=== PATIENT | female | born 1985 | race Caucasian/White ===

== ENCOUNTER 2017-05-09 21:06 | Emergency (ER) | payer OTHER ==
[2017-05-09 21:12] VITALS: BP 114/47; PULSE 109; TEMP 97.9; BMI 20.5
--- NOTE | 2017-05-09 22:03 | PDOC ---
History of Present Illness - General History Source: Patient, Family Exam Limitations: No Limitations - History of Present Illness Initial Comments: 05/09/17 22:31 The patient is a 32 year old female, with no significant past medical history, who presents to the emergency department complaining of right arm and shoulder pain for approximately 3 days. The patient reports her pain radiates down her right arm, but denies any numbness or paresthesias. She reports taking two 500 mg aspirin every 4 hours, with minimal relief. The patient reports she thinks it might be muscular. She reports her pain is exacerbated when she stretches her right arm over her head. She denies any neck or back pain. The patient denies any chest pain, shortness of breath, diaphoresis, or palpitations. She denies any fever, chills, or dizziness. The patient reports her last menstrual period was 10 months ago. She reports she is on norplant. Allergies: NKDA, [Shrimp] Past Surgical History: None reported Social History. Non smoker. No ETOH or drug use. <Hector Burgess - Last Filed: 05/09/17 22:30> <Ann Tyler - Last Filed: 05/09/17 23:53> - General Chief Complaint: Pain, Acute Stated Complaint: SHOULDER PAIN FOR 3 DAYS Time Seen by Provider: 05/09/17 21:51 Past History <Hector Burgess - Last Filed: 05/09/17 22:30> - Past Medical History Asthma: No Cancer: No Cardiac Disorders: No Diabetes: No HTN: No Seizures: No Thyroid Disease: No - Psycho/Social/Smoking Cessation Hx Anxiety: No Suicidal Ideation: No Smoking History: Never smoked Have you smoked in the past 12 months: No Number of Cigarettes Smoked Daily: 0 Information on smoking cessation initiated: No Hx Alcohol Use: No Drug/Substance Use Hx: No Hx Substance Use Treatment: No <Ann Tyler - Last Filed: 05/09/17 23:53> - Past Medical History Allergies/Adverse Reactions: Allergies Allergy/AdvReac Type Severity Reaction Status Date / Time No Known Drug Allergies Allergy Verified 05/09/17 21:09 SHRIMP Allergy Uncoded 05/09/17 21:09 Home Medications: Ambulatory Orders Acetaminophen [Tylenol .Regular Strength -] 650 mg PO Q4H PRN #20 tablet Ferrous Sulfate [Feosol] 325 mg PO DAILY 06/20/14 Ibuprofen [Motrin -] 600 mg PO Q4H PRN #20 tablet 06/20/14 Vitamins (Sjr) - 1 mg PO DAILY 06/20/14 Methocarbamol [Robaxin -] 500 mg PO TID #30 tablet 05/09/17 Review of Systems - Review of Systems Able to Perform ROS?: Yes Comments:: 05/09/17 22:31 GENERAL/CONSTITUTIONAL: No fever or chills. No weakness. HEAD, EYES, EARS, NOSE AND THROAT: No change in vision. No ear pain or discharge. No sore throat. CARDIOVASCULAR: No chest pain or shortness of breath. RESPIRATORY: No cough, wheezing, or hemoptysis. GASTROINTESTINAL: No nausea, vomiting, diarrhea or constipation. GENITOURINARY: No dysuria, frequency, or change in urination. MUSCULOSKELETAL: Yes: +Right arm/shoulder pain. No joint or muscle swelling . No neck or back pain. SKIN: No rash NEUROLOGIC: No headache, vertigo, loss of consciousness, or change in strength/ sensation. ENDOCRINE: No increased thirst. No abnormal weight change. HEMATOLOGIC/LYMPHATIC: No anemia, easy bleeding, or history of blood clots. ALLERGIC/IMMUNOLOGIC: No hives or skin allergy. <Hector Burgess - Last Filed: 05/09/17 22:30> *Physical Exam - Vital Signs Last Vital Signs Temp Pulse Resp BP Pulse Ox 97.9 F 109 H 18 114/47 98 05/09/17 21:09 05/09/17 21:09 05/09/17 21:09 05/09/17 21:09 05/09/17 21:09 - Physical Exam Comments: 05/09/17 22:31 GENERAL: Awake, alert, and fully oriented, in no acute distress HEAD: No signs of trauma EYES: PERRLA, EOMI, sclera anicteric, conjunctiva clear ENT: Auricles normal inspection, hearing grossly normal, nares patent, oropharynx clear without exudates. Moist mucosa NECK: Normal ROM, supple, no lymphadenopathy, JVD, or masses LUNGS: Breath sounds equal, clear to auscultation bilaterally. No wheezes, and no crackles HEART: Regular rate and rhythm, normal S1 and S2, no murmurs, rubs or gallops ABDOMEN: Soft, nontender, normoactive bowel sounds. No guarding, no rebound. No masses EXTREMITIES: Normal range of motion, no edema. No clubbing or cyanosis. No cords , erythema, or tenderness NEUROLOGICAL: Cranial nerves II through XII grossly intact. Normal speech, normal gait SKIN: Warm, Dry, normal turgor, no rashes or lesions noted. <Hector Burgess - Last Filed: 05/09/17 22:30> - Vital Signs Last Vital Signs Temp Pulse Resp BP Pulse Ox 97.9 F 109 H 18 114/47 98 05/09/17 21:09 05/09/17 21:09 05/09/17 21:09 05/09/17 21:09 05/09/17 21:09 <Ann Tyler - Last Filed: 05/09/17 23:53> Medical Decision Making - Medical Decision Making 05/09/17 23:51 Pt comes with R shoulder pain and trapezius pain. Pain runs down the right arm. Likely pinched nerve/paresthesia. She has no pain with movement of the arm and no major muscle spasm noted on exam. Exam normal, no PMHx and XR scapula and shoulder normal. Follow with neurology. <Ann Tyler - Last Filed: 05/09/17 23:53> *DC/Admit/Observation/Transfer - Attestations Scribe Attestion: 05/09/17 22:31 Documentation prepared by Hector Burgess, acting as medical dermatologist for Ann Tyler MD. <Hector Burgess - Last Filed: 05/09/17 22:30> - Discharge Dispostion Admit: No <Ann Tyler - Last Filed: 05/09/17 23:53> Diagnosis at time of Disposition: Nerve pain - Discharge Dispostion Disposition: HOME Condition at time of disposition: Stable - Prescriptions Prescriptions: Methocarbamol [Robaxin -] 500 mg PO TID #30 tablet - Referrals Referrals: Violet Burt MD [Primary Care Provider] - Savage Riley MD [Staff Physician] - - Patient Instructions Printed Discharge Instructions: Neuropathic Pain
[2017-05-09] MEDS ORDERED: METHOCARBAMOL 500 MG TABLET PO ONE (22:15)
[2017-05-09] MEDS ORDERED: METHOCARBAMOL 500 MG TABLET ONE (22:27)
== END 2017-05-09 23:28 | disposition home or self-care (01) ==
LOC: JERFT 21:06 → JER 21:06
DX: M79.2 Neuralgia and neuritis, unspecified (principal)
CPT/HCPCS: 73010-TC; 73030-TC-RT; 99281-25; 99282-25

== ENCOUNTER 2017-06-22 16:40 | Emergency (ER) | payer OTHER ==
[2017-06-22 16:56] VITALS: BP 115/42; PULSE 85; BMI 20.9
[2017-06-22] MEDS ORDERED: diazePAM 2 MG TABLET PO ONE (17:14)
[2017-06-22] MEDS ORDERED: KETOROLAC TROMETHAMINE 30 MG/1 ML VIAL IM ONE (17:14)
[2017-06-22] MEDS ORDERED: diazePAM 2 MG TABLET ONE (17:18)
[2017-06-22] MEDS ORDERED: KETOROLAC TROMETHAMINE 60 MG/2 ML VIAL ONE (17:18)
--- NOTE | 2017-06-22 17:21 | PDOC ---
History of Present Illness - General Chief Complaint: Head/Neck problem Stated Complaint: LEFT SIDE NECK PAIN Time Seen by Provider: 06/22/17 17:00 - History of Present Illness Initial Comments: 06/22/17 17:17 CHIEF COMPLAINT: neck pain HISTORY OF PRESENT ILLNESS: 32 yo F with no PMH presents to [facility] with pain to L neck. Patient states she was lying down this morning and when she got up she could not move her neck. She denies any recent trauma or injury. PAST MEDICAL HISTORY: Denies past medical history FAMILY HISTORY: Denies SOCIAL HISTORY: Denies tobacco, alcohol, illicit drug use. SURGICAL HISTORY: ALLERGIES: No known drug allergies REVIEW OF SYSTEMS General/Constitutional: Denies fever or chills. Denies weakness, weight change. HEENT: Denies change in vision. Denies ear pain or discharge. Denies sore throat. Cardiovascular: Denies chest pain or shortness of breath. Respiratory: Denies cough, wheezing, or hemoptysis. Gastrointestinal: Denies nausea, vomiting, diarrhea. Musculoskeletal: Pain to L neck and shoulder. Neurologic: Denies headache, vertigo, loss of consciousness, or loss of sensation. PHYSICAL EXAM General Appearance: Well-appearing, appropriately dressed. No apparent distress , no intoxication. HEENT: EOMI, PERRLA, normal ENT inspection, normal voice, TMs normal, pharynx normal. No conjunctival pallor. No photophobia, scleral icterus. Neck: Tenderness to left trapezius, limited lateral movement to L neck secondary to pain. Supple. Trachea midline. No lymphadenopathy, or thyromegaly. Respiratory/Chest: Lungs CTAB. Cardiovascular: RRR. S1, S2. Musculoskeletal/Extremities: Normal inspection. FROM of all extremities, normal capillary refill. Pelvis Stable. No CVA tenderness. No tenderness to extremities, pedal edema, swelling, erythema or deformity. Integumentary: Appropriate color, dry, warm. No cyanosis, erythema, jaundice or rash Neurologic: spool winder II-XII intact. Fully oriented, alert. Appropriate mood/affect. Motor strength 5/5. No appreciable EOM palsy, facial droop or sensory deficit. 06/22/17 17:21 Past History - Past Medical History Allergies/Adverse Reactions: Allergies Allergy/AdvReac Type Severity Reaction Status Date / Time No Known Drug Allergies Allergy Verified 06/22/17 16:55 SHRIMP Allergy Uncoded 06/22/17 16:55 Home Medications: Ambulatory Orders Methocarbamol [Robaxin -] 500 mg PO TID #30 tablet 05/09/17 Diazepam [Valium] 5 mg PO HS PRN #5 tablet MDD 1 06/22/17 Naproxen Sodium [Midol] 220 mg PO BID #14 tablet 06/22/17 Asthma: No Cancer: No Cardiac Disorders: No Diabetes: No HTN: No Seizures: No Thyroid Disease: No - Psycho/Social/Smoking Cessation Hx Anxiety: No Suicidal Ideation: No Smoking History: Never smoked Have you smoked in the past 12 months: No Number of Cigarettes Smoked Daily: 0 Hx Alcohol Use: No Drug/Substance Use Hx: No Substance Use Type: None Hx Substance Use Treatment: No *Physical Exam - Vital Signs Last Vital Signs Temp Pulse Resp BP Pulse Ox 85 20 115/42 98 06/22/17 16:51 06/22/17 16:51 06/22/17 16:51 06/22/17 16:51 ED Treatment Course - ADDITIONAL ORDERS Additional order review: Laboratory Results 06/22/17 17:00 Urine HCG, Qual Negative Medical Decision Making - Medical Decision Making 06/22/17 17:24 32 yo F with no PMH presents to [facility] with pain to L neck. Clinical presentation consistent with torticollis. -urine preg -Toradol -2 mg Valium *DC/Admit/Observation/Transfer Diagnosis at time of Disposition: Torticollis, spasmodic - Discharge Dispostion Disposition: HOME Condition at time of disposition: Improved Admit: No - Prescriptions Prescriptions: Naproxen Sodium [Midol] 220 mg PO BID #14 tablet Diazepam [Valium] 5 mg PO HS PRN #5 tablet MDD 1 PRN Reason: Muscle Spasms - Referrals Referrals: Violet Burt MD [Primary Care Provider] - Tien Benson MD [Staff Physician] - - Patient Instructions Printed Discharge Instructions: DI for Torticollis Additional Instructions: Please take medication as prescribed. As discussed, you need to follow up with the orthopedist this week. You may go to Dr. Benson's clinic on Friday, from 9am-12pm or 12pm-4pm at [facility] on . If you experience any pain down your spine, loss of sensation to your arms or legs, or any new or worsening symptoms, please return to the ER. Por favor, tome la medicacin segn lo prescrito. Mccracken se discuti, usted necesita hacer un seguimiento con el ortopedista. Dr. Benson esta disponible el kori, de 9 am-12pm o el jueves, de 12 pm-4pm en [facility] en . Si experimenta algn dolor en la columna vertebral, prdida de sensibilidad en los brazos o las piernas, o cualquier nuevo o empeoramiento de los sntomas, por favor regrese a la gilson de emergencia. Print Language: HEBREW - Post Discharge Activity Work/School Note: Back to Work
== END 2017-06-22 18:08 | disposition home or self-care (01) ==
LOC: JERFT 16:40
PROC: 3E0233Z Introduction of Anti-inflammatory into Muscle, Percutaneous Approach (ICD-10-PCS; principal; 2017-06-22)
DX: G24.3 Spasmodic torticollis (principal)
CPT/HCPCS: 84703; 96372; 99281-25

== ENCOUNTER 2018-03-08 12:53 | Emergency (ER) | payer OTHER ==
[2018-03-08 13:00] VITALS: BP 119/55; PULSE 78; TEMP 98.3; BMI 21.1
--- NOTE | 2018-03-08 13:37 | PDOC ---
History of Present Illness - General Chief Complaint: Urinary Problem Stated Complaint: PAIN, URINARY PROBLEM Time Seen by Provider: 03/08/18 13:14 History Source: Patient, Special Education Aide Used (Interpretor ID [id number]) Exam Limitations: No Limitations (Intepretor) - History of Present Illness Travel History: No Initial Comments: 03/08/18 13:35 33y/o F with lower abd pressure with urinary urgency, frequency and dsyuria X 5 days. Pt denies f/c, hematuria, n/v/d, vag d/c, back pain or STI concerns. Last BM today. Past History - Travel Traveled outside of the country in the last 30 days: No Close contact w/someone who was outside of country & ill: No - Past Medical History Allergies/Adverse Reactions: Allergies Allergy/AdvReac Type Severity Reaction Status Date / Time No Known Drug Allergies Allergy Verified 03/08/18 12:55 SHRIMP Allergy Uncoded 03/08/18 12:55 Home Medications: Ambulatory Orders Fluconazole [Diflucan] 150 mg PO ONCE #1 tablet 03/08/18 Nitrofurantoin Monohyd/M-Cryst [Macrobid -] 100 mg PO BID #14 capsule 03/08/18 Phenazopyridine HCl [Pyridium] 100 mg PO TID 2 Days #6 tablet 03/08/18 Asthma: No Cancer: No Cardiac Disorders: No COPD: No Diabetes: No HTN: No Seizures: No Thyroid Disease: No - Suicide/Smoking/Psychosocial Hx Smoking History: Never smoked Have you smoked in the past 12 months: No Number of Cigarettes Smoked Daily: 0 Information on smoking cessation initiated: No Hx Alcohol Use: No Drug/Substance Use Hx: No Substance Use Type: None Hx Substance Use Treatment: No Abd/GI Specific PMHX - Complaint Specific PMHX Colitis: No Review of Systems - Review of Systems Able to Perform ROS?: No Is the patient limited Maltese proficient: No Constitutional: No: Chills, Fever Cardiac (ROS): No: Chest Pain ABD/GI: Yes: Other (lower abd pressure). No: Abd. Pain w/ defecation, Difficulty Swallowing, Nausea, Poor Appetite, Vomiting, Indigestion, Abdominal cramping : Yes: Dysuria, Urgency. No: Discharge, Hematuria, Incontinence *Physical Exam - Vital Signs Last Vital Signs Temp Pulse Resp BP Pulse Ox 98.3 F 78 16 119/55 100 04/15/18 12:57 03/08/18 12:57 03/08/18 12:57 03/08/18 12:57 03/08/18 12:57 - Physical Exam General Appearance: Yes: Nourished Respiratory/Chest: positive: Lungs Clear, Normal Breath Sounds Cardiovascular: positive: Regular Rhythm, Regular Rate, S1, S2 Gastrointestinal/Abdominal: positive: Normal Bowel Sounds, Soft. negative: Tenderness (no CVA tenderness) Neurologic: positive: orthophotography technician II-XII NML intact, Fully Oriented, Alert Medical Decision Making - Medical Decision Making 03/08/18 13:38 patient is a [id number] with urinary frequecy, abd pressure, urgency and dysuria, She denies fevers, chills, nausea, vomiting vaginal dischargd, heamturia, back pain or STI concerns. She is using Nexplanon for Contraception, LMP 2 months ago a/p r/o UTI, UA, preg test, and UCX sent 03/08/18 15:13 ere at consistent with large leuks blood. I will treat patient for urinary tract infection Patient encouraged to increase hydration *DC/Admit/Observation/Transfer Diagnosis at time of Disposition: Cystitis - Discharge Dispostion Disposition: HOME Condition at time of disposition: Stable Admit: No - Prescriptions Prescriptions: Fluconazole [Diflucan] 150 mg PO ONCE #1 tablet Nitrofurantoin Monohyd/M-Cryst [Macrobid -] 100 mg PO BID #14 capsule Phenazopyridine HCl [Pyridium] 100 mg PO TID 2 Days #6 tablet - Referrals - Patient Instructions Printed Discharge Instructions: Urinary Tract Infection, DI for Urinary Tract Infection (UTI) - Post Discharge Activity
[2018-03-08 13:51] LABS: URINE APPEARANCE CLOUDY; URINE BILIRUBIN NEGATIVE (<2.0 mg/dL); URINE BLOOD 3+ (NEGATIVE); URINE COLOR LTYELLOW; URINE GLUCOSE (UA) NEGATIVE (NEGATIVE); URINE KETONE NEGATIVE (NEGATIVE); URINE NITRITE NEGATIVE (NEGATIVE); URINE UROBILINOGEN NEGATIVE mg/dL (0.2-1.0)
[2018-03-08 13:53] LABS: URINE LEUK ESTERASE 3+ (NEGATIVE); URINE PROTEIN 2+ (NEGATIVE)
[2018-03-08 14:07] LABS: EPI CELLS RARE /HPF (FEW); URINE MUCUS RARE
== END 2018-03-08 14:21 | disposition home or self-care (01) ==
LOC: JERFT 12:53
DX: N30.00 Acute cystitis without hematuria (principal)
CPT/HCPCS: 81003; 81015; 84703; 87086; 99281-25

== ENCOUNTER 2021-01-17 09:20 | Inpatient (IN) | payer OTHER ==
[2021-01-17] MEDS ORDERED: CITRIC ACID/SODIUM CITRATE 30 ML UNIT-DOSE CUP PO ONE (09:50)
[2021-01-17] MEDS ORDERED: ELECTROLYTE-148 SOLN 1,000 ML IV SCH (10:00)
[2021-01-17 10:58] VITALS: BMI 23.3
[2021-01-17] MEDS ORDERED: OXYTOCIN 20 UNITS in 0.9% NS 40 UNIT/2,000 ML INFUS.BAG IV ONE (11:11)
[2021-01-17] MEDS ORDERED: DEXAMETHASONE SOD PHOSPHATE 4 MG/1 ML VIAL ONE (11:14)
[2021-01-17] MEDS ORDERED: ONDANSETRON 4 MG/2 ML VIAL ONE (11:14)
[2021-01-17] MEDS ORDERED: ceFAZolin SODIUM 1 GM VIAL ONE (11:14)
[2021-01-17] MEDS ORDERED: KETAMINE HCL 500 MG/10 ML VIAL ONE (11:41)
[2021-01-17] MEDS ORDERED: KETOROLAC TROMETHAMINE 30 MG/1 ML VIAL ONE (12:01)
[2021-01-17] MEDS ORDERED: ONDANSETRON 4 MG/2 ML VIAL IVPUSH PRN (12:28)
[2021-01-17] MEDS ORDERED: ACETAMINOPHEN 1000 MG/100 ML VIAL (NON FORMULARY) IVPB PRN (12:28)
[2021-01-17] MEDS ORDERED: ACETAMINOPHEN INJECTION 100 ML IVPB ONE (12:51)
[2021-01-17] MEDS ORDERED: IBUPROFEN 800 MG/8 ML IJ IVPB PRN (15:42)
[2021-01-18] MEDS: OXYTOCIN 20 UNITS in 0.9% NS 20 UNIT/1,000 ML INFUS.BAG IV SCH (03:45)
[2021-01-18 09:00] LABS: BASO % 0.1 % (0-2.0); EOS % 0.1 % (0-4.5); HEMATOCRIT 26.2 % (32.4-45.2); HEMOGLOBIN 8.6 GM/dL (10.7-15.3); LYMPH % 9.5 % (8-40); MCH 29.3 pg (25.7-33.7); MCHC 32.9 g/dl (32.0-36.0); MEAN CELL VOLUME 88.8 fl (80-96); MEAN PLT VOLUME 11.7 fl (7.5-11.1); MONO % 6.7 % (3.8-10.2); NEUT % 83.6 % (42.8-82.8); PLATELET COUNT 149 K/MM3 (134-434); RBC 2.95 M/mm3 (3.60-5.2); RDW 13.7 % (11.6-15.6)
[2021-01-18] MEDS ORDERED: BISACODYL 10 MG SUPP.RECT RC PRN (15:30)
[2021-01-18] MEDS: IBUPROFEN 600 MG TABLET (FP) PO PRN (19:25)
[2021-01-18] MEDS: SIMETHICONE 80 MG TAB.CHEW (FP) PO PRN (19:25)
[2021-01-19] MEDS: IBUPROFEN 600 MG TABLET (FP) PO PRN (11:19)
[2021-01-19] MEDS: SIMETHICONE 80 MG TAB.CHEW (FP) PO PRN ×2 (11:20→14:31)
[2021-01-19] MEDS: oxyCODONE HCL 5 MG TABLET PO PRN (14:30)
[2021-01-20] MEDS: oxyCODONE HCL 5 MG TABLET PO PRN (01:21)
[2021-01-20] MEDS: SIMETHICONE 80 MG TAB.CHEW (FP) PO PRN (01:21)
[2021-01-20] MEDS: IBUPROFEN 600 MG TABLET (FP) PO PRN (01:22)
[2021-01-20] MEDS: OXYTOCIN 20 UNITS in 0.9% NS 20 UNIT/1,000 ML INFUS.BAG IV SCH (04:45)
[2021-01-20 08:21] LABS: BASO % 0.4 % (0-2.0); EOS % 4.1 % (0-4.5); HEMATOCRIT 29.1 % (32.4-45.2); HEMOGLOBIN 9.7 GM/dL (10.7-15.3); LYMPH % 27.4 % (8-40); MCH 29.6 pg (25.7-33.7); MCHC 33.2 g/dl (32.0-36.0); MEAN CELL VOLUME 89.3 fl (80-96); MEAN PLT VOLUME 10.6 fl (7.5-11.1); MONO % 7.3 % (3.8-10.2); NEUT % 60.8 % (42.8-82.8); PLATELET COUNT 204 K/MM3 (134-434); RBC 3.26 M/mm3 (3.60-5.2); WHITE BLOOD COUNT 6.3 K/mm3 (4.0-10.0)
[2021-01-20 09:01] VITALS: BP 108/64; PULSE 78; TEMP 97.9
== END 2021-01-20 13:45 | disposition home or self-care (01) | DRG 540 ==
LOC: JLDR 09:20 → J3W 14:14
PROVIDERS: ADMIT Student in an Organized Health Care Education/Training Program; ATTEND Student in an Organized Health Care Education/Training Program
PROC: 10D00Z1 Extraction of Products of Conception, Low, Open Approach (ICD-10-PCS; principal; 2021-01-17)
DX: O34.211 Maternal care for low transverse scar from previous cesarean delivery (principal); Z3A.39 39 weeks gestation of pregnancy; Z37.0 Single live birth; O90.81 Anemia of the puerperium; D64.89 Other specified anemias
CPT/HCPCS: 36415; 85025; 88307-TC; J0131